=== PATIENT | female | born 1995 | race Caucasian/White ===

== ENCOUNTER 2019-11-08 12:20 | Emergency (ER) | payer BC, MEDICAID, SELFPAY ==
[~2019-11-08] VITALS: Ht 165.1 cm; Wt 80.7 kg
[2019-11-08 12:57] VITALS: BP 121/63
[2019-11-08 14:04] VITALS: BP 121/63
== END 2019-11-08 14:03 | disposition home or self-care (01) ==
LOC: MED 12:20
DX: U07.1 COVID-19 (principal)
CPT/HCPCS: 99283; U0003